=== PATIENT | male | born 1970 | race Caucasian/White ===

== ENCOUNTER 2018-04-18 07:24 | Inpatient (IN) | payer OTHER ==
[~2018-04-18] VITALS: Ht 175.3 cm; Wt 74.8 kg
[2018-04-18] MEDS ORDERED: ELVI1TAB3 PO (09:44)
[2018-04-18] MEDS ORDERED: BACL10TA PO (09:44)
[2018-04-18] MEDS ORDERED: GABA-534 PO (09:44)
[2018-04-18] MEDS ORDERED: ALBU18HF2 IH (09:44)
--- NOTE | 2018-04-18 09:50 | NUR ---
MS RN OPENING NOTES RECEIVED PATIENT IN STABLE CONDITION. IN NO APPARENT DISTRESS. BEDSIDE RAILS ARE UPX2. BED IS LOCKED AND LOWERED. CALL LIGHT IS WITHIN REACH. IV LINE IS INTACT AND PATENT. BELONGINGS WERE CHECKED. WILL CONTINUE TO MONITOR PATIENT.
[2018-04-18 10:00] VITALS: BP 145/94
--- NOTE | 2018-04-18 12:00 | NUR ---
INFORMED DR. LUNA THAT PATIENT HAS ARRIVED TO THE UNIT AND MEDICATION RECONCILIATION HAS BEEN UPDATED ON THE COMPUTER. ADVISED HER TO REVIEW MED RECON AND AWAITING ADMITTING ORDERS.
--- NOTE | 2018-04-18 13:53 | NUR ---
ASKED DR. LUNA FOR DIET ORDERS. CARDIAC DIET ORDERED PER DR. LUNA
[2018-04-18 16:00] VITALS: BP 132/80
--- NOTE | 2018-04-18 16:33 | NUR ---
ASKED DR. LUNA FOR PAIN MEDICATION FOR PATIENT. NORCO WAS ORDERED FOR PATIENT PER DR. LUNA
[2018-04-18] MEDS: HYDROCODONE/APAP 10/325MG 1 EA TABLET PO PRN (17:38)
--- NOTE | 2018-04-18 18:29 | NUR ---
MS RN CLOSING NOTES PATIENT IS IN STABLE CONDITION. IN NO APPARENT DISTRESS. BEDSIDE RAILS ARE UPX2. BED IS LOCKED AND LOWERED. CALL LIGHT IS WITHIN REACH. IV LINE IS INTACT AND PATENT. WILL ENDORSE CARE TO PER DIEM CLERK NURSE FOR MIKIE.
--- NOTE | 2018-04-18 19:30 | NUR ---
RECEIVED PATIENT IN BED ASLEEP, EASILY AROUSABLE. AO X 3, ABLE TO MAKE NEEDS KNOWN. NO ACUTE DISTRESS NOTED. DENIES ANY PAIN AT THIS TIME. IV SITE PATENT, INTACT; FLUSHED. LEFT LEG DRESSING INTACT. SAFETY REMINDERS GIVEN. ON LOW BED WITH BILATERAL UPPER SIDE RAILS UP. CALL [place] WITHIN EASY REACH. WILL CONTINUE TO MONITOR.
[2018-04-18 20:00] VITALS: BP 114/72
[2018-04-18] MEDS ORDERED: MAGNESIUM HYDROXIDE 30 ML UDC PO PRN (20:30)
[2018-04-18] MEDS ORDERED: Z GUARD REMEDY 2 OZ OINT TP PRN (20:30)
[2018-04-18] MEDS ORDERED: MAG HYDROX/AL HYDROX/SIMETH 30 ML UDC PO PRN (20:30)
[2018-04-18] MEDS ORDERED: VANCOMYCIN 500 MG in IV NS 0.9% 100 ML IV SCH (20:30)
[2018-04-18] MEDS ORDERED: HYDROCODONE/APAP 5/325MG 1 EACH TABLET PO PRN (20:30)
[2018-04-18] MEDS ORDERED: BACLOFEN (10 MG) 10 MG TABLET PO PRN (20:30)
[2018-04-18] MEDS ORDERED: ONDANSETRON HCL/PF 4 MG/2 ML VIAL IVP PRN (20:30)
[2018-04-18] MEDS ORDERED: ACETAMINOPHEN 325 MG TABLET PO PRN (20:30)
[2018-04-18] MEDS ORDERED: FEE PK DOSING 1 MIN EA MC ONE (20:49)
[2018-04-18] MEDS ORDERED: VANCOMYCIN 1 GM in IV D5W 250 ML IV ONE (21:00)
[2018-04-18 21:44] LABS: CALCIUM, SERUM 8.2 mg/dL (8.5-10.1); CREATININE 0.9 mg/dL (0.6-1.3); POTASSIUM 3.7 mmol/L (3.5-5.1)
[2018-04-19] MEDS: HYDROCODONE/APAP 10/325MG 1 EA TABLET PO PRN ×2 (00:59→19:25)
[2018-04-19] MEDS ORDERED: ALBUTEROL FS 2.5 MG/0.5 ML VIAL.NEB NEB PRN (01:30)
[2018-04-19 06:12] LABS: BASOPHILS % (AUTO) 0.8 % (0.0-2.0); EOSINOPHILS % (AUTO) 5.2 % (0.0-6.0); HEMATOCRIT 34 % (39-51); HEMOGLOBIN 11.2 g/dL (13.5-17.5); LYMPHOCYTES # (AUTO) 1.1 /CMM (0.8-4.8); LYMPHOCYTES % (AUTO) 20.5 % (20.0-44.0); MEAN CORPUSCULAR HGB CONC 33 g/dl (31.0-36.0); MEAN CORPUSCULAR VOLUME 83 fL (80-96); MONOCYTES # (AUTO) 0.4 /CMM (0.1-1.30); MONOCYTES % (AUTO) 7.4 % (2.0-12.0); NEUTROPHILS # (AUTO) 3.6 /CMM (1.8-8.9); NEUTROPHILS % (AUTO) 66.1 % (43.0-81.0); PLATELET COUNT (AUTO) 287 /CMM (150-450); RED BLOOD CELL COUNT(AUTO) 4.05 MIL/uL (4.5-6.0); WHITE BLOOD COUNT (AUTO) 5.5 K/uL (4.3-11.0)
--- NOTE | 2018-04-19 06:15 | NUR ---
PATIENT ASLEEP, EASILY AROUSABE. RESPIRATIONS EVEN. NO SIGNS OF PAIN NOTED. DUE MED GIVEN WITH NO ASE NOTED. NEEDS ATTENDED. SAFETY PRECAUTIONS AND COMFORT MEASURES IN PLACE. WILL GIVE REPORT TO DAY SHIFT FOR CONTINUITY OF CARE.
[2018-04-19 06:35] LABS: CALCIUM, SERUM 7.9 mg/dL (8.5-10.1); CREATININE 0.7 mg/dL (0.6-1.3); MAGNESIUM 1.9 mg/dL (1.8-2.4); PHOSPHORUS 3.7 mg/dL (2.5-4.9); POTASSIUM 3.8 mmol/L (3.5-5.1)
[2018-04-19 08:00] VITALS: BP 128/76
--- NOTE | 2018-04-19 08:00 | NUR ---
MS RN OPENING NOTES RECEIVED PATIENT IN STABLE CONDITION.C/O LLE WOUND. PAIN MGT GIVEN WITH NORCO 10/325 MG TAB. BEDSIDE RAILS ARE UPX2. BED IS LOCKED AND LOWERED. CALL LIGHT WITHIN REACH. IV LINE IS INTACT AND PATENT. SEEN BY AD WRITER.FOR WOUND CONSULT.WILL CONTINUE TO MONITOR PATIENT.
[2018-04-19] MEDS: VANCOMYCIN 1 GM in IV D5W 250 ML IV SCH ×3 (08:18→23:03)
--- NOTE | 2018-04-19 08:30 | NUR ---
PT TRIED TO CONTACT HIS PHARMACY FOR THE GENVOYA MEDS BUT [facility] ON WEEKENDS.
[2018-04-19] MEDS ORDERED: [UNRECOGNIZED DRUG - OTHER] PO SCH (09:00)
[2018-04-19 16:00] VITALS: BP 128/76
--- NOTE | 2018-04-19 18:35 | NUR ---
PT WAS ABLE TO CONTACT HIS PHARMACY AND WILL BE ABLE TO DELIVER HIS HIV MED GENHUBERTYA TOMORROW AM.
--- NOTE | 2018-04-19 18:37 | NUR ---
PT RESTING IN BED DENYING ANY PAIN OR DISTRESS.INTERACTING FINE WITH HIS ROOMATE.CALL LIGHT PLACED WITHIN REACH.
--- NOTE | 2018-04-19 19:25 | NUR ---
MS RN NOTE RECEIVED PT IN STABLE CONDITION. A&O X4 WITH NO SIGNS OF SOB OR DISTRESS. RIGHT AC IV PATENT AND INTACT. SAFETY MEASURES IN PLACE: BED LOW, LOCKED POSITION, UPPER SIDE RAILS UP X2, AND CALL LIGHT WITHIN REACH. WILL CONT. TO MONITOR.
--- NOTE | 2018-04-19 19:26 | NUR ---
MS RN NOTE PRN NORCO 10-325 MG GIVEN FOR PAIN 8/10 LOCATED ON R HIP AND L LEG VERBALIZED BY PT. WILL CONT. TO MONITOR.
[2018-04-19 20:00] VITALS: BP 111/62
[2018-04-19 20:19] VITALS: BP 111/62
[2018-04-20] MEDS: HYDROCODONE/APAP 10/325MG 1 EA TABLET PO PRN ×2 (04:24→12:58)
--- NOTE | 2018-04-20 04:24 | NUR ---
MS RN NOTE PRN NORCO 10-325 MG GIVEN FOR PAIN 9/10 LOCATED BILATERAL LEGS. WILL CONT. TO MONITOR.
--- NOTE | 2018-04-20 06:23 | NUR ---
MS RN NOTE PT IN STABLE CONDITION. A&O X4 WITH NO SIGNS OF SOB OR DISTRESS. LEFT HAND IV PATENT AND INTACT. SAFETY MEASURES IN PLACE: BED LOW, LOCKED POSITION, UPPER SIDE RAILS UP X2, AND CALL LIGHT WITHIN REACH. WILL CONT. TO MONITOR AND ENDORSE TO NEXT SHIFT.
[2018-04-20 06:56] LABS: BASOPHILS # (AUTO) 0.1 /CMM (0.0-0.2); EOSINOPHILS % (AUTO) 5.6 % (0.0-6.0); HEMATOCRIT 37 % (39-51); LYMPHOCYTES # (AUTO) 1.2 /CMM (0.8-4.8); LYMPHOCYTES % (AUTO) 21.2 % (20.0-44.0); MEAN CORPUSCULAR HGB CONC 33 g/dl (31.0-36.0); MEAN CORPUSCULAR VOLUME 83 fL (80-96); MONOCYTES # (AUTO) 0.5 /CMM (0.1-1.30); MONOCYTES % (AUTO) 8.5 % (2.0-12.0); NEUTROPHILS # (AUTO) 3.7 /CMM (1.8-8.9); NEUTROPHILS % (AUTO) 63.7 % (43.0-81.0); PLATELET COUNT (AUTO) 278 /CMM (150-450); RED BLOOD CELL COUNT(AUTO) 4.39 MIL/uL (4.5-6.0); WHITE BLOOD COUNT (AUTO) 5.8 K/uL (4.3-11.0)
[2018-04-20 07:23] LABS: CALCIUM, SERUM 8.4 mg/dL (8.5-10.1); CREATININE 0.7 mg/dL (0.6-1.3); MAGNESIUM 1.8 mg/dL (1.8-2.4); PHOSPHORUS 4.2 mg/dL (2.5-4.9); POTASSIUM 3.8 mmol/L (3.5-5.1)
[2018-04-20 08:00] VITALS: BP 114/68
--- NOTE | 2018-04-20 08:00 | NUR ---
RN NOTES RECEIVED PATIENT IN THE BED RESTING IN THE BED. PATIENT A/O X3/4, NO ACUTE RESPIRATORY DISTRESS. V/S TAKEN STABLE, SCHEDULED MEDICATION ADMINISTERED. PATIENT DENIED PAIN AT THIS TIME. SWOLLEN LEFT LOWER LEG, PATIENT USING URINAL. INFUSING VANCOMYCIN AT 250ML/HR INTACT. PATIENT TURN AND REPOSTION IN THE BED BY SELF. NEEDS ATTENDED AND ANTICIPATED. CONTINUED MONITORING.
[2018-04-20] MEDS: VANCOMYCIN 1 GM in IV D5W 250 ML IV SCH ×3 (08:24→23:16)
[2018-04-20] MEDS: GABAPENTIN 300 MG CAPSULE PO PRN (09:38)
--- NOTE | 2018-04-20 09:38 | NUR ---
rn notes administered Neurontin 600 mg po prn for bilateral lower legs pain 10/22 per patient request, continued monitoring.
--- NOTE | 2018-04-20 12:58 | NUR ---
RN NOTES ADMINISTERED NARCO 10/325 MG PO PRN FOR LEFT LEG PAIN 09/22 PER PATIENT REQUEST, V/S TAKEN BP-116//70, P-68, ENCOURAGED TO INCREASE FLUID INTAKE, CONTINUED MONITORING,
--- NOTE | 2018-04-20 14:08 | NUR ---
rn notes patient sleeping at this time, no acute respiratory distress, , medication were administered for pain effective, continued monitoring.
[2018-04-20 16:00] VITALS: BP 115/77
--- NOTE | 2018-04-20 18:00 | NUR ---
RN NOTES PATIENT UPSET, BECAUSE OF NOT GET DELIVERED HIS HIV MEDICATION MY HIS PHARMACY. CALL PHARMACY, WAS CLOSED TODAY. Dr LUNA AWARE OF.
--- NOTE | 2018-04-20 18:30 | NUR ---
RN NOTES PATIENT STABLE NO COMPLAINING OF PAIN AT THIS TIME. V/S STABLE, PATIENT SELF CARE, NO RESPIRATORY DISTRESS. CALL LIGHT WITHIN TO REACH. SAFETY PRECAUTION MAINTAINED ALL THE TIME. ENDORSED ONCOMING NURSE FOR PLAN OF CARE.
--- NOTE | 2018-04-20 19:35 | NUR ---
MS RN OPENING NOTES: RECEIVED PT ON ROOM AIR AND IS TOLERATING WELL. PT ASLEEP AT THIS TIME. NO SOB NOTED. NO S/S OF DISTRESS. PT HAS IV AND IS PATENT AND INTACT. CURRENTLY H/L. BED KEPT IN LOW, LOCKED POSITION, AND SIDE RAILS X 2UP. WILL CONTINUE TO MONITOR PT.
[2018-04-20 20:00] VITALS: BP 123/68
--- NOTE | 2018-04-20 20:55 | NUR ---
MS RN NOTES: SPOKE WITH DR. ALMEIDA. INFORMED HIM THAT PT IS VERY ANGRY ABOUT NOT GETTING HIS MEDICATION GENVOYA FOR 2 DAYS NOW. FRIEND IS AT BEDSIDE WHO IS WILLING TO COPY PREPARER MEDICATIONS AT [facility] 24 HOURS AT [facility]. PER DR. ALMEIDA, HE WILL NOT WRITE A PRESCRIPTION FOR GENVOYA. IT WILL BE TAKEN CARE OF IN THE MORNING.
--- NOTE | 2018-04-20 21:14 | NUR ---
MS RN NOTES: PT INFORMED ABOUT THE SITUATION OF GENVOYA MEDICATION. PT VERY UPSET AND ANGRY.
[2018-04-20] MEDS: HYDROCODONE/APAP 5/325MG 1 EACH TABLET PO PRN (21:17)
--- NOTE | 2018-04-20 21:18 | NUR ---
MS RN NOTES: PT COMPLAINING OF R HIP AND BILATERAL LEG PAIN 10/22. PT WAS ADMINISTERED NORCO 5 PO. WILL CONTINUE TO MONITOR PT.
[2018-04-21] MEDS: HYDROCODONE/APAP 5/325MG 1 EACH TABLET PO PRN (03:15)
--- NOTE | 2018-04-21 03:17 | NUR ---
MS RN NOTES: PT COMPLAINING OF BILATERAL CALF PAIN AND R HIP PAIN. PT WAS ADMINISTERED NORCO 5 PO. WILL CONTINUE TO MONITOR.
[2018-04-21 07:12] LABS: BASOPHILS % (AUTO) 0.8 % (0.0-2.0); EOSINOPHILS % (AUTO) 5.3 % (0.0-6.0); HEMATOCRIT 37 % (39-51); LYMPHOCYTES # (AUTO) 1.6 /CMM (0.8-4.8); LYMPHOCYTES % (AUTO) 27.3 % (20.0-44.0); MEAN CORPUSCULAR HGB CONC 33 g/dl (31.0-36.0); MEAN CORPUSCULAR VOLUME 84 fL (80-96); MONOCYTES # (AUTO) 0.6 /CMM (0.1-1.30); MONOCYTES % (AUTO) 10.1 % (2.0-12.0); NEUTROPHILS # (AUTO) 3.3 /CMM (1.8-8.9); NEUTROPHILS % (AUTO) 56.5 % (43.0-81.0); PLATELET COUNT (AUTO) 312 /CMM (150-450); RED BLOOD CELL COUNT(AUTO) 4.39 MIL/uL (4.5-6.0); WHITE BLOOD COUNT (AUTO) 5.9 K/uL (4.3-11.0)
--- NOTE | 2018-04-21 07:24 | NUR ---
MS RN CLOSING NOTES: ALL NEEDS WERE ATTENDED AND ANTICIPATED FOR. PT ASLEEP AT THIS TIME AND RESTING COMFORTABLY. IV REMAINS INTACT. CURRENTLY H/L. BED KEPT IN LOW, LOCKED POSITION, AND SIDE RAILS X 2UP. ENDORSED TO AM NURSE FOR MIKIE.
[2018-04-21 07:28] LABS: CALCIUM, SERUM 8.3 mg/dL (8.5-10.1); CREATININE 0.7 mg/dL (0.6-1.3); MAGNESIUM 1.9 mg/dL (1.8-2.4); PHOSPHORUS 3.7 mg/dL (2.5-4.9); POTASSIUM 3.9 mmol/L (3.5-5.1)
--- NOTE | 2018-04-21 07:35 | NUR ---
MS RN OPENING NOTE RECEIVED PATIENT ASLEEP IN BED AT THIS TIME. NO FACIAL GRIMACING NOTED FOR PAIN. NO SOB OR DISTRESS NOTED ON ROOM AIR TOLERATING WELL. CALL LIGHT WITHIN REACH. SAFETY MEASURES IMPLEMENTED. LEFT HAND IV INTACT AND PATENT NO REDNESS OR SWELLING NOTED WITH NO IV FLUIDS RUNNING AT THIS TIME. LABS THIS MORNING, RESULTS PENDING. BED LOCKED IN LOWEST POSITION WITH SIDERAILS UP x2 FOR SAFETY. WILL CONTINUE TO MONITOR THROUGHOUT SHIFT
[2018-04-21 08:00] VITALS: BP 124/72
[2018-04-21] MEDS: HYDROCODONE/APAP 10/325MG 1 EA TABLET PO PRN ×3 (08:25→23:51)
[2018-04-21] MEDS: VANCOMYCIN 1 GM in IV D5W 250 ML IV SCH ×2 (08:29→16:00)
--- NOTE | 2018-04-21 08:34 | NUR ---
MS RN NOTE PATIENT REQUESTING PAIN MEDICATION. OFFERED TO REPOSITION AND OFFER NEEDS TO MAKE COMFORTABLE. PATIENT STILL NOTED WITH FACIAL GRIMACING. LEFT LEG PAIN 10/10 ACHING &THROBBING. NORCO 10/325 MG PO PRN GIVEN. WILL REASSESS FOR EFFECTIVENESS
--- NOTE | 2018-04-21 08:38 | NUR ---
MS RN NOTE PATIENT REQUESTING ASSOCIATE CHEMIST. JOHNNA LUCIO
--- NOTE | 2018-04-21 09:30 | NUR ---
RN NOTE PATIENT WAS BECOMING VERY AGITATED AND ANGRY IN REGARD TO HIV MEDICATIONS. PATIENT STATED " I NEED MY MEDICATIONS. YOU GUYS NEED TO HAVE YOUR PHARMACY CALL MY PHARMACY TO GET MY MEDICATIONS SO I CAN TAKE THEM" WHEN SPEAKING TO PATIENT AND INFORMING HIM THAT THOSE MEDICATIONS ARE NOT AVAILABLE HERE IN OUR PHARMACY AND NEEDED TO BE BROUGHT IN FROM HOME PATIENT BEGAN YELLING " THIS IS BULLSHIT YOU GUYS DONT WANT TO GIVE ME MY MEDICATION. YOU KNOW WHAT ? WHY AM I HERE? YOU GUYS AREN'T TREATING ME AND I NEED MY MEDICATIONS. IM GOING TO [facility], THE DOCTOR AND THIS HOSPITAL. IM LEAVING THIS IS BULLSHIT". INFORMED -DR LUNA
--- NOTE | 2018-04-21 11:22 | NUR ---
INTERMEDIATE ACCOUNTANT NOTE PATIENT WAS VERY ANGRY AND WANTED TO LEAVE AMA. INFORMED MD THAT PATIENT WAS UPSET IN REGARDS TO HIV MEDICATIONS NOT BEING ABLE TO BE GIVEN DURING HOSPITAL STAY. INFORMED PATIENT THAT SOMEONE NEEDED TO BRING MEDICATION IN FOR HIM AND WAS STILL YELLING AND SCREAMING STATING " THIS IS BULLSHIT IM GOING TO [facility] YOU ALL THE DOCTORS AND THIS HOSPITAL IM CALLING MY LOG HOOKER RIGHT NOW". PATIENT HAD ALL BELONGINGS WITH HIM AT BEDSIDE. REFUSED WOUND PICTURE DOCUMENTATION. IV REMOVED. ALERT AND ORIENTED X4. NO FACIAL GRIMACING NOTED FOR PAIN. NO SOB OR DISTRESS NOTED ON ROOM AIR TOLERATING WELL. ALL NURSING CARE NEEDS ATTENDED TO NEEDED. ALL MEDICATIONS GIVEN ORDERED. CALL LIGHT WITHIN REACH AT ALL TIMES. SAFETY MEASURES IMPLEMENTED. REFUSED DISCHARGE PAPERWORK AT THIS TIME. LEFT VIA TAXI. Addendum: 04/21/18 at 1158 by SUHAS CARRASQUILLO RN incident report made Unique Id: [id number] informed dr zamora, supervisor drying and winding and charge nurse
--- NOTE | 2018-04-21 16:00 | NUR ---
PATIENT LEFT AMA. VANCOMYCIN NOT ADMINISTERED.
--- NOTE | 2018-04-21 18:00 | NUR ---
MS RN OPENING NOTES RECEIVED PATIENT IN STABLE CONDITION. IN NO APPARENT DISTRESS. BEDSIDE RAILS ARE UPX2. BED IS LOCKED AND LOWERED. CALL LIGHT IS WITHIN REACH. WILL CONTINUE TO MONITOR PATIENT
--- NOTE | 2018-04-21 18:54 | NUR ---
MS RN CLOSING NOTES PATIENT IS IN STABLE CONDITION. IN NO APPARENT DISTRESS. BEDSIDE RAILS ARE UPX2. BED IS LOCKED AND LOWERED. CALL LIGHT IS WITHIN REACH. IV LINE IS INTACT AND PATENT. WILL ENDORSE CARE TO M1A1 TANK CREWMAN NURSE FOR MIKIE.
--- NOTE | 2018-04-21 19:30 | NUR ---
MS/RN NOTES RECEIVED PATIENT IN BED, ALERT, ORIENTED HAVING DINNER, AND ABLE TO VERBALIZE NEEDS, INFORMED HIV MEDICATION AND PROVIDED IT FOR PHARMACY HOME MEDICATION FOR HIS HIV, PATIENT REPORTED THAT HE TOOK HIS MED HIV TODAY. TO SEND HIS HOME MED TO PHARMACY. INFORM CHARGE NURSE.
[2018-04-21 20:00] VITALS: BP 116/62
--- NOTE | 2018-04-21 20:00 | NUR ---
ms/rn notes received patietn , alert,oriented,pain medication norco 5-325 mg po to be given for severe pain, ate some snacks and provided fluids, ambulatory with walker.call lights within reach, bed locked will monitor.
--- NOTE | 2018-04-21 23:52 | NUR ---
MS/RN NOTES PATIETNAWAKEN FROM SLEEP, BRP AND AMBULATED AND REQUESTED FOR PAIN MEDICATION SEVERE PAIN ON LEFT LEG, 12/23, NORCO 10-325 MG PO ADMINISTER BY MOUTH, ABLE TO SWALLOW AND WILL MONITOR PAIN RELIEF.
[2018-04-22] MEDS ORDERED: VANCOMYCIN 1 GM VIAL ONE (00:07)
[2018-04-22] MEDS: VANCOMYCIN 1 GM in IV D5W 250 ML IV SCH ×4 (00:13→23:29)
[2018-04-22] MEDS: ZOLPIDEM TARTRATE 5 MG TABLET PO PRN (03:02)
--- NOTE | 2018-04-22 03:04 | NUR ---
MS/RN NOTES PATIENT REPORTED AND VERBALIZED UNABLE TO SLEEP AND WAS AWAKEN BY THE OTHER PATIENT IN THE ROOM, REQUESTING TO HAVE MEDICATION FOR SLEEP INFORMED AFTER 3AM AND PROTOCOL BUT PATIENT VERBALIZE THE NEED . INFORMED PATIENT PROS AND CONS AND VERBALIZED UNDERSTANDING WILL MONITOR. AMBIEN GIVEN FOR SLEEP. CALL LIGHTS WITHIN REACH, BED LOCKED,
--- NOTE | 2018-04-22 07:33 | NUR ---
321-1 MS/RN NOTES PATIENT ABLE TO SLEEP AFTER SLEEP MEDICATION GIVEN, ALERT, ORIENTED X3, ABLE TO VERBALIZE NEES, PAIN MEDICATION GIVEN AND MONIOTRED FOR PAIN RELIEF, ON IV ANTIBIOTIC VANCOMYCIN M MONIOTRED FOR ANY S/S OF ADVERSE REACTION, CALL LIGHTS WITHIN REACH, BED LOCKED, PROVIDED FLUIDS, ATTENDED ALL NEEDS. WILL ENDORSE TO AM RN FOR MIKIE.
[2018-04-22 08:00] VITALS: BP 116/69
--- NOTE | 2018-04-22 08:00 | NUR ---
MS RN NOTES PATIENT IN BED RESTING NO SOB OR ACUTE DISTRESS NOTED. PATIENT ALERT, ORIENTED X3 DENIES ANY PAIN OR DISCOMFORT. BED IN LOW LOCKED POSITION. CALL LIGHT WITHIN REACH. WILL CONTINUE TO MONITOR.
[2018-04-22] MEDS: [UNRECOGNIZED DRUG - OTHER] PO SCH (09:16)
[2018-04-22] MEDS: HYDROCODONE/APAP 10/325MG 1 EA TABLET PO PRN (14:39)
[2018-04-22 16:00] VITALS: BP 137/68
--- NOTE | 2018-04-22 17:00 | NUR ---
MS RN NOTES TRANSFERRED CARE TO GAYATRI RN BEDSIDE REPORT GIVEN. PATIENT ALERT, ORIENTED X3 DENIES ANY PAIN OR DISCOMFORT. ALL DUE MEDICATIONS ADMINISTERED. ALL NEEDS MET.
--- NOTE | 2018-04-22 17:05 | NUR ---
RECEIVED REPORT FROM NIA KHALIL. FOR MIKIE. PATIENT IS IN BED, IN STABLE CONDITION. IN NO APPARENT DISTRESS AT THIS TIME. WILL CONTINUE TO MONITOR.
--- NOTE | 2018-04-22 18:56 | NUR ---
MS RN NOTES PATIENT IN BED RESTING NO SOB OR ACUTE DISTRESS NOTED. PATIENT ALERT, ORIENTED X3. ALL DUE MEDICATIONS ADMINISTERED. ALL NEEDS MET. PERIPHERAL IV INTACT PATENT. WILL ENDORSE TO PM SHIFT MIKIE.
--- NOTE | 2018-04-22 19:43 | NUR ---
MS RN OPENING NOTES: RECEIVED PT ON ROOM AIR AND IS TOLERATING WELL. FRIEND AT BEDSIDE AT THIS TIME. NO SOB NOTED. NO S/S OF DISTRESS. IV INTACT. GARBLED SPEECH NOTED. BED KEPT IN LOW, LOCKED POSITION, AND SIDE RAILS X 2UP. WILL CONTINUE TO MONITOR PT.
[2018-04-22 20:00] VITALS: BP 109/66
[2018-04-22] MEDS: HYDROCODONE/APAP 5/325MG 1 EACH TABLET PO PRN (21:04)
--- NOTE | 2018-04-22 21:06 | NUR ---
MS RN NOTES: PT COMPLAINING OF 6/10 L LOWER EXTREMITY PAIN. PT WAS ADMINISTERED NORCO 5 PO. WILL CONTINUE TO MONITOR.
[2018-04-23 07:29] LABS: BASOPHILS # (AUTO) 0.1 /CMM (0.0-0.2); BASOPHILS % (AUTO) 0.9 % (0.0-2.0); EOSINOPHILS % (AUTO) 5.2 % (0.0-6.0); HEMATOCRIT 39 % (39-51); HEMOGLOBIN 12.8 g/dL (13.5-17.5); LYMPHOCYTES # (AUTO) 1.6 /CMM (0.8-4.8); MEAN CORPUSCULAR HGB CONC 33 g/dl (31.0-36.0); MEAN CORPUSCULAR VOLUME 84 fL (80-96); MONOCYTES # (AUTO) 0.6 /CMM (0.1-1.30); MONOCYTES % (AUTO) 10.8 % (2.0-12.0); NEUTROPHILS # (AUTO) 3.1 /CMM (1.8-8.9); NEUTROPHILS % (AUTO) 55.1 % (43.0-81.0); PLATELET COUNT (AUTO) 296 /CMM (150-450); RED BLOOD CELL COUNT(AUTO) 4.71 MIL/uL (4.5-6.0); WHITE BLOOD COUNT (AUTO) 5.5 K/uL (4.3-11.0)
[2018-04-23 07:54] LABS: CALCIUM, SERUM 8.6 mg/dL (8.5-10.1); CREATININE 0.8 mg/dL (0.6-1.3); PHOSPHORUS 4.3 mg/dL (2.5-4.9); POTASSIUM 4.3 mmol/L (3.5-5.1)
[2018-04-23 08:00] VITALS: BP 107/62
[2018-04-23] MEDS: VANCOMYCIN 1 GM in IV D5W 250 ML IV SCH ×2 (09:12→16:24)
[2018-04-23] MEDS: [UNRECOGNIZED DRUG - OTHER] PO SCH (09:12)
[2018-04-23] MEDS: HYDROCODONE/APAP 5/325MG 1 EACH TABLET PO PRN ×2 (09:45→16:25)
[2018-04-23 16:00] VITALS: BP 131/72
[2018-04-23 20:00] VITALS: BP 123/68
[2018-04-23] MEDS: GABAPENTIN 300 MG CAPSULE PO PRN (20:27)
--- NOTE | 2018-04-23 20:30 | NUR ---
MS RICHARD NOTES PT SEEN IN BED AWAKE AND ALERT STILL EATING SANDWICH AT THIS TIME,. COMPLAINING OF RESTLESS LEGS. NEURONTIN PO GIVEN ORDERED. NO SIGNS OF ANY ACUTE DISTRESS NOTED. LEFT LOWER LEGS SWOLLEN ENCOURAGE HIM TO UP ON PILLOWS . VITAL SIGNS WITHIN NORMAL LIMIT. KEPT HIM COMFORTABLE AT ALL TIMES.WILL CONTINUE MONITORING. PLACE CALL LIGHT AT REACH.
--- NOTE | 2018-04-24 | NUR ---
MS RICHARD NOTES PT BACK TO SLEEP AFTER ASKING FOR SOME FOOD TO EAT. NO SIGNS OF ANY DISCOMFORT NOTED AT THIS TIMES. VANCOMYCIN IVP BAG WILL BE HANG BY ANOTHER NURSE ORDERED. NO VANCO TROUGH DUE AT THIS TIME. WILL CONTINUE MONITORING.
[2018-04-24] MEDS: VANCOMYCIN 1 GM in IV D5W 250 ML IV SCH ×2 (00:10→09:52)
--- NOTE | 2018-04-24 07:41 | NUR ---
MS SIGN BUILDER CLOSING NOTES PT WATCHING TV AT THIS TIME , DENIES ANY PAIN OR ANY DISCOMFORT. SLEPT WELL AND STABLE LORRAINE THE NIGHT. MY ONLY NOTICED EVERY TIME HE WOKE UP ASKING FOR FOODS. ABLE TO AMBULATE WITH WALKER. ALL DUE MEDS GIVEN AND ALL NEEDS MET. KEPT HIM WARM AND COMFORTABLE AT ALL TIMES. PLACE CALL LIGHT AT REACH. ENDORSE TO AM NURSE FOR CONTINUITY OF CARE.
[2018-04-24 07:45] LABS: BASOPHILS # (AUTO) 0.1 /CMM (0.0-0.2); BASOPHILS % (AUTO) 0.8 % (0.0-2.0); EOSINOPHILS % (AUTO) 4.2 % (0.0-6.0); HEMATOCRIT 38 % (39-51); HEMOGLOBIN 12.2 g/dL (13.5-17.5); LYMPHOCYTES # (AUTO) 1.8 /CMM (0.8-4.8); LYMPHOCYTES % (AUTO) 27.3 % (20.0-44.0); MEAN CORPUSCULAR HGB CONC 33 g/dl (31.0-36.0); MEAN CORPUSCULAR VOLUME 84 fL (80-96); MONOCYTES # (AUTO) 0.6 /CMM (0.1-1.30); MONOCYTES % (AUTO) 9.7 % (2.0-12.0); NEUTROPHILS # (AUTO) 3.9 /CMM (1.8-8.9); PLATELET COUNT (AUTO) 293 /CMM (150-450); WHITE BLOOD COUNT (AUTO) 6.7 K/uL (4.3-11.0)
[2018-04-24 08:00] VITALS: BP 119/69
[2018-04-24 08:09] LABS: CALCIUM, SERUM 8.6 mg/dL (8.5-10.1); CREATININE 0.8 mg/dL (0.6-1.3); MAGNESIUM 2.1 mg/dL (1.8-2.4); PHOSPHORUS 3.9 mg/dL (2.5-4.9); POTASSIUM 4.1 mmol/L (3.5-5.1)
--- NOTE | 2018-04-24 08:10 | NUR ---
MS RN RECEIVED ON BED, AWAKE,ALERT,ORIENTED X4,NOT IN ANY FORM OF DISTRESS, RESPIRATIONS EVEN AND UNLABORED,NO SOB NOTED,EATING BREAKFAST AT THIS TIME, ALL NEEDS ATTENDED.
--- NOTE | 2018-04-24 09:10 | NUR ---
ms rn due meds given.tolerated well.
[2018-04-24] MEDS: [UNRECOGNIZED DRUG - OTHER] PO SCH (09:52)
[2018-04-24] MEDS: HYDROCODONE/APAP 10/325MG 1 EA TABLET PO PRN (12:34)
[2018-04-24] MEDS: GABAPENTIN 300 MG CAPSULE PO PRN ×2 (12:34→21:04)
--- NOTE | 2018-04-24 15:30 | NUR ---
ms rn new hep loch inserted by student at left hand g22 w/ good venous return.
[2018-04-24 15:59] VITALS: BP 125/69
[2018-04-24] MEDS: VANCOMYCIN 0.75 GM in IV D5W 250 ML IV SCH (16:58)
--- NOTE | 2018-04-24 17:39 | NUR ---
ms rn on bed, no distress noted,all needs attended.
[2018-04-24 19:46] VITALS: BP 116/72
--- NOTE | 2018-04-24 20:00 | NUR ---
MS RICHARD INITIAL NOTES PT SEEN IN BED LYING DOWN WHILE WATCHING TV. MIKE AT THIS TIME. HE ASKED FOR ANOTHER MEATLOAF AND INSISTING THAT HE ORDERED ANOTHER DINNER TRAY. SPOKE TO HIM AND OFFERED SOMETHING ELSE AND PT STATED GIVE ME SANDWICH INSTEAD. HE STILL REFUSING TO TOUCH HIS LEFT LOWER LEG AND APPLIED DRESSING. DENIES ANY PAIN OR ANY DISCOMFORT. BUT HE STATED HE WANTS HIS NEURONTIN FOR HIS RESTLESS LEG. KEPT HIM COMFORTABLE AT ALL TIMES. WILL CONTINUE MONITORING.
--- NOTE | 2018-04-24 21:05 | NUR ---
MS RICHARD NOTES SNACKS ALSO SERVED PT REQUESTED AND NEURONTIN GIVEN ORDERED. WILL CONTINUE MONITORING.
[2018-04-25] MEDS: VANCOMYCIN 0.75 GM in IV D5W 250 ML IV SCH ×3 (00:36→16:40)
--- NOTE | 2018-04-25 00:36 | NUR ---
MS RICHARD NOTES VANCOMYCIN IVP BAG HUNG BY ANOTHER NURSE ORDERED. NO VANCO TROUGH DUE AT THIS TIME. KEPT HIM WARM AND COMFORTABLE AT ALL TIMES. WILL CONTINUE MONITORING.
--- NOTE | 2018-04-25 07:28 | NUR ---
MS PRODUCT HANDLER CLOSING NOTES PT REMAINS SLEEPING COMFORTABLY IN BED WITHOUT ANY ACUTE DISTRESS NOTED. STABLE LORRAINE THE NIGHT AND SLEPT WELL. KEPT HIM WARM AND COMFORTABLE AT ALL TIMES. HE ONLY REQUESTED IS DOUBLE PORTION OF FOODS. ENDORSE TO AM NURSE FOR CONTINUITY OF CARE. PLACE CALL LIGHT AT REACH.
[2018-04-25 07:48] LABS: BASOPHILS # (AUTO) 0.1 /CMM (0.0-0.2); EOSINOPHILS % (AUTO) 4.4 % (0.0-6.0); HEMATOCRIT 39 % (39-51); HEMOGLOBIN 12.7 g/dL (13.5-17.5); LYMPHOCYTES # (AUTO) 1.7 /CMM (0.8-4.8); LYMPHOCYTES % (AUTO) 27.9 % (20.0-44.0); MEAN CORPUSCULAR HGB CONC 33 g/dl (31.0-36.0); MEAN CORPUSCULAR VOLUME 84 fL (80-96); MONOCYTES # (AUTO) 0.6 /CMM (0.1-1.30); MONOCYTES % (AUTO) 9.1 % (2.0-12.0); NEUTROPHILS # (AUTO) 3.6 /CMM (1.8-8.9); NEUTROPHILS % (AUTO) 57.6 % (43.0-81.0); PLATELET COUNT (AUTO) 290 /CMM (150-450); RED BLOOD CELL COUNT(AUTO) 4.61 MIL/uL (4.5-6.0); WHITE BLOOD COUNT (AUTO) 6.2 K/uL (4.3-11.0)
[2018-04-25 07:50] LABS: CALCIUM, SERUM 8.4 mg/dL (8.5-10.1); CREATININE 0.7 mg/dL (0.6-1.3); POTASSIUM 4.2 mmol/L (3.5-5.1)
[2018-04-25 08:00] VITALS: BP 113/63
--- NOTE | 2018-04-25 08:05 | NUR ---
MS RN RECEIVED ON BED, AWAKE,ALERT,ORIENTED X4,NOT IN ANY FORM OF DISTRESS, RESPIRATIONS EVEN AND UNLABORED,NO SOB NOTED, LUNGS ARE CLEAR,ABDOMEN SOFT,POSITIVE BOWEL SOUNDS,DENIES PAIN AT THIS TIME,ALL NEEDS ATTENDED.
--- NOTE | 2018-04-25 08:50 | NUR ---
MS KHALIL BREAKFAST SERVED,DUE MEDS GIVEN,TOLERATED WELL.
[2018-04-25] MEDS: [UNRECOGNIZED DRUG - OTHER] PO SCH (09:24)
--- NOTE | 2018-04-25 12:20 | NUR ---
MS RN WAS SEEN BY SCOOBY HINOJOSA FOR ORTHO CONSULT,NO ORDERS MADE.
[2018-04-25 16:00] VITALS: BP 108/70
--- NOTE | 2018-04-25 17:13 | NUR ---
MS RN ON BED, NO DISTRESS NOTED,ALL NEEDS ATTENDED.
--- NOTE | 2018-04-25 19:50 | NUR ---
MS RN NOTE: PATIENT RESTING IN BED, NO ACUTE DISTRESS NOTED. BREATHING EVEN AND UNLABORED, NO SOB NOTED. BED LOCKED AND IN LOWEST POSITION, CALL LIGHT IN REACH. WILL CONTINUE TO MONITOR.
[2018-04-25 20:00] VITALS: BP 117/73
[2018-04-25] MEDS: GABAPENTIN 300 MG CAPSULE PO PRN (21:17)
--- NOTE | 2018-04-25 21:45 | NUR ---
MS RN NOTE: PATIENT COMPLAINS OF PAIN TO LEFT LEG, NEURONTIN 600MG ORAL PER MD ORDER. WILL CONTINUE TO MONITOR.
[2018-04-26] MEDS: VANCOMYCIN 0.75 GM in IV D5W 250 ML IV SCH ×4 (00:32→23:52)
--- NOTE | 2018-04-26 06:20 | NUR ---
MS RN NOTE: PATIENT RESTING IN BED, NO ACUTE DISTRESS NOTED. BREATHING EVEN AND UNLABORED, NO SOB NOTED. BED LOCKED AND IN LOWEST POSITION, CALL LIGHT IN REACH. WILL ENDORSE TO DAY NURSE TO CONTINUE WITH PLAN OF CARE.
--- NOTE | 2018-04-26 07:05 | NUR ---
RN NOTES PATIENT ASLEEP BUT EASILY AWAKEN, NAD, BREATHING EVEN AND UNLABORED, KEPT COMFORTABLE, NEEDS ATTENDED, CALL LIGHT WITHIN REACH, WILL CONTINUE TO MONITOR.
[2018-04-26 07:24] LABS: CALCIUM, SERUM 7.4 mg/dL (8.5-10.1); CREATININE 0.8 mg/dL (0.6-1.3); POTASSIUM 4.1 mmol/L (3.5-5.1)
[2018-04-26 07:32] LABS: BASOPHILS # (AUTO) 0.1 /CMM (0.0-0.2); BASOPHILS % (AUTO) 1.1 % (0.0-2.0); EOSINOPHILS % (AUTO) 3.8 % (0.0-6.0); HEMATOCRIT 38 % (39-51); HEMOGLOBIN 12.5 g/dL (13.5-17.5); LYMPHOCYTES # (AUTO) 1.8 /CMM (0.8-4.8); LYMPHOCYTES % (AUTO) 26.9 % (20.0-44.0); MEAN CORPUSCULAR HGB CONC 33 g/dl (31.0-36.0); MEAN CORPUSCULAR VOLUME 84 fL (80-96); MONOCYTES # (AUTO) 0.6 /CMM (0.1-1.30); MONOCYTES % (AUTO) 8.4 % (2.0-12.0); NEUTROPHILS # (AUTO) 4.1 /CMM (1.8-8.9); NEUTROPHILS % (AUTO) 59.8 % (43.0-81.0); PLATELET COUNT (AUTO) 304 /CMM (150-450); RED BLOOD CELL COUNT(AUTO) 4.51 MIL/uL (4.5-6.0); WHITE BLOOD COUNT (AUTO) 6.8 K/uL (4.3-11.0)
[2018-04-26 08:00] VITALS: BP 123/70
[2018-04-26] MEDS: [UNRECOGNIZED DRUG - OTHER] PO SCH (08:25)
[2018-04-26 16:00] VITALS: BP 128/69
[2018-04-26] MEDS: HYDROCODONE/APAP 10/325MG 1 EA TABLET PO PRN (16:41)
--- NOTE | 2018-04-26 18:19 | NUR ---
RN NOTES PATIENT A/OX4, BREATHING EVEN AND UNLABORED, NO DISTRESS NOTED, LLE STILL NOTED WITH SWELLING. DENIES PAIN AT THIS TIME, ABLE TO WALK TO RESTROOM WITH WALKER. NEEDS ATTENDED AND MET, CALL LIGHT WITHIN REACH, WILL ENDORSE TO SHIPFITTER FOR MIKIE.
[2018-04-26 20:00] VITALS: BP 121/75
--- NOTE | 2018-04-27 07:32 | NUR ---
RN NOTES PATIENT A/OX4, BREATHING EVEN AND UNLABORED, NO SOB NOTED, DENIES PAIN, IV SITE PATENT AND INTACT, KEPT ON SALINE LOCK, KEPT PATIENT COMFORTABLE, NEEDS ATTENDED, CALL LIGHT WITHIN REACH, WILL CONTINUE TO MONITOR.
[2018-04-27 07:37] LABS: BASOPHILS # (AUTO) 0.1 /CMM (0.0-0.2); EOSINOPHILS % (AUTO) 3.6 % (0.0-6.0); HEMATOCRIT 38 % (39-51); HEMOGLOBIN 12.6 g/dL (13.5-17.5); LYMPHOCYTES # (AUTO) 1.7 /CMM (0.8-4.8); LYMPHOCYTES % (AUTO) 24.8 % (20.0-44.0); MEAN CORPUSCULAR HGB CONC 33 g/dl (31.0-36.0); MEAN CORPUSCULAR VOLUME 84 fL (80-96); MONOCYTES # (AUTO) 0.6 /CMM (0.1-1.30); MONOCYTES % (AUTO) 8.8 % (2.0-12.0); NEUTROPHILS # (AUTO) 4.2 /CMM (1.8-8.9); NEUTROPHILS % (AUTO) 61.8 % (43.0-81.0); PLATELET COUNT (AUTO) 308 /CMM (150-450); RED BLOOD CELL COUNT(AUTO) 4.57 MIL/uL (4.5-6.0); WHITE BLOOD COUNT (AUTO) 6.8 K/uL (4.3-11.0)
[2018-04-27 07:55] LABS: CALCIUM, SERUM 8.3 mg/dL (8.5-10.1); CREATININE 0.8 mg/dL (0.6-1.3); PHOSPHORUS 4.3 mg/dL (2.5-4.9); POTASSIUM 4.2 mmol/L (3.5-5.1)
[2018-04-27 08:00] VITALS: BP 114/69
[2018-04-27] MEDS: GABAPENTIN 300 MG CAPSULE PO PRN (08:45)
[2018-04-27] MEDS: [UNRECOGNIZED DRUG - OTHER] PO SCH (08:45)
[2018-04-27] MEDS: VANCOMYCIN 0.75 GM in IV D5W 250 ML IV SCH ×3 (08:45→23:37)
[2018-04-27 16:00] VITALS: BP 93/48
--- NOTE | 2018-04-27 18:38 | NUR ---
RN NOTES PATIENT IN NO DISTRESS, BREATHING EVEN AND UNLABORED, NO SOB NOTED, NO SIGNIFICANT CHANGE THIS SHIFT, NEEDS ATTENDED, CALL LIGHT WITHIN REACH, WILL ENDORSE TO RUBBER TIRE AND TUBES SUPERVISOR FOR MIKIE.
[2018-04-27 20:00] VITALS: BP 114/71
--- NOTE | 2018-04-27 20:00 | NUR ---
MS RN NOTES RECEIVED PATIENT IN BED AND WATCHING TV WITH NO DISTRESS NOTED. CALL LIGHT WITHIN REACH. NO C/O PAIN OR DISCOMFORT. PERIPHERAL LINE INTACT AND PATENT. BED IN LOW LOCK SETTING. ALL BELONGINGS KEPT NEAR PATIENT. WILL CONTINUE TO MONITOR.
[2018-04-27] MEDS: ZOLPIDEM TARTRATE 5 MG TABLET PO PRN (23:48)
--- NOTE | 2018-04-28 06:03 | NUR ---
MS RN CLOSING NOTES PATIENT ASLEEP IN BED WITH NO DISTRESS NOTED. CALL LIGHT WITHIN REACH. LEFT HAND #22 GAUGE IV REMOVED D/T SWELLING AND TENDERNESS. NEW PERIPHERAL LINE IN LFA #22 GAUGE INTACT AND PATENT. ALL DUE MEDS GIVEN ORDERED WITH NO ASE NOTED. NO C/O PAIN OR DISCOMFORT NOTED DURING SHIFT. BED IN LOW LOCK SETTING. ALL BELONGINGS WITHIN REACH. WALKER AT BEDSIDE. WILL ENDORSE TO ONCOMING SHIFT.
--- NOTE | 2018-04-28 07:30 | NUR ---
RN MS NOTES PT IN BED, ASLEEP, EASY TO AROUSE, ALERT AND ORIENTED, NO COMPLAINT OF PAIN AT THIS TIME, RESPIRATIONS NORMAL, CALL LIGHT WITHIN REACH, NEEDS ATTENDED.
[2018-04-28 07:37] LABS: BASOPHILS # (AUTO) 0.1 /CMM (0.0-0.2); HEMATOCRIT 39 % (39-51); HEMOGLOBIN 12.7 g/dL (13.5-17.5); LYMPHOCYTES # (AUTO) 1.7 /CMM (0.8-4.8); LYMPHOCYTES % (AUTO) 21.4 % (20.0-44.0); MEAN CORPUSCULAR HGB CONC 32 g/dl (31.0-36.0); MEAN CORPUSCULAR VOLUME 84 fL (80-96); MONOCYTES # (AUTO) 0.8 /CMM (0.1-1.30); MONOCYTES % (AUTO) 9.6 % (2.0-12.0); NEUTROPHILS # (AUTO) 5.1 /CMM (1.8-8.9); PLATELET COUNT (AUTO) 321 /CMM (150-450); RED BLOOD CELL COUNT(AUTO) 4.65 MIL/uL (4.5-6.0); WHITE BLOOD COUNT (AUTO) 7.9 K/uL (4.3-11.0)
[2018-04-28 07:56] LABS: CALCIUM, SERUM 8.5 mg/dL (8.5-10.1); CREATININE 0.8 mg/dL (0.6-1.3); POTASSIUM 4.2 mmol/L (3.5-5.1)
[2018-04-28 08:00] VITALS: BP 126/74
[2018-04-28] MEDS: [UNRECOGNIZED DRUG - OTHER] PO SCH (08:17)
[2018-04-28] MEDS: VANCOMYCIN 0.75 GM in IV D5W 250 ML IV SCH (08:17)
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
== END 2018-04-28 12:15 | disposition home or self-care (01) | DRG 813 ==
LOC: MED 09:23 → UNDODISIN 04-21 10:45 → MED 04-21 18:14
PROVIDERS: ADMIT Internal Medicine; ATTEND Internal Medicine
DX: T81.89XA Other complications of procedures, not elsewhere classified, initial encounter (principal); M00.9 Pyogenic arthritis, unspecified; M97.12XA Periprosthetic fracture around internal prosthetic left knee joint, initial encounter; L02.416 Cutaneous abscess of left lower limb; M86.662 Other chronic osteomyelitis, left tibia and fibula; F12.90 Cannabis use, unspecified, uncomplicated; L03.119 Cellulitis of unspecified part of limb; S82.142A Displaced bicondylar fracture of left tibia, initial encounter for closed fracture; M65.9 Synovitis and tenosynovitis, unspecified; Y83.9 Surgical procedure, unspecified as the cause of abnormal reaction of the patient, or of later complication, without mention of misadventure at the time of the procedure; Y92.009 Unspecified place in unspecified non-institutional (private) residence as the place of occurrence of the external cause; V49.9XXA Car occupant (driver) (passenger) injured in unspecified traffic accident, initial encounter; Y92.410 Unspecified street and highway as the place of occurrence of the external cause; Z87.891 Personal history of nicotine dependence
CPT/HCPCS: 36415; 73700-TC; 80048-TC; 80061-TC; 80202-TC; 83735-TC; 84100-TC; 85025-TC; 85652-TC; 87081-TC; 93971-TC; G0378; J3370; J7030; J7050; J7060

== ENCOUNTER 2018-09-30 14:22 | Emergency (ER) | payer OTHER ==
[~2018-09-30] VITALS: Ht 175.3 cm; Wt 74.8 kg
[~2018-09-30 14:22] MED LIST: ALBU18HF2 IH; BACL10TA PO; ELVI1TAB3 PO; GABA-534 PO
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
--- NOTE | 2018-09-30 15:53 | NUR ---
PATIENT A/OX2-3, MEDICALLY CLEARED FOR BOOKING. PATIENT DISCHARGED TO [employer] CUSTODY, IN NO DISTRESS. VSS.
[2018-09-30 15:56] VITALS: BP 113/70
== END 2018-09-30 15:57 ==
LOC: ER 14:22
DX: S70.02XA Contusion of left hip, initial encounter (principal); Z88.2 Allergy status to sulfonamides; Z88.1 Allergy status to other antibiotic agents; Z60.2 Problems related to living alone; V49.49XA Driver injured in collision with other motor vehicles in traffic accident, initial encounter; Y93.89 Activity, other specified; Y92.413 State road as the place of occurrence of the external cause; Y99.8 Other external cause status
CPT/HCPCS: 72170-TC; 73564-TC; 73590-TC

== ENCOUNTER 2019-02-25 00:08 | Inpatient (IN) | payer OTHER ==
[~2019-02-25] VITALS: Ht 175.3 cm; Wt 68.0 kg
--- NOTE | 2019-02-25 00:44 | NUR ---
PATIENT CAME TO ER WITH C/O LEFT RIB PAIN FROM SLIPPING IN BATH TUB AND ALSO HAS HAD LEFT LEG ABSCESS ON THE CALF AREA. AAOX4. NO SOB. BREATHING EVEN AND UNLABORED. CONNECTED TO MONITOR.
[2019-02-25] MEDS ORDERED: IV NS 0.9% 1,000 ML BAG IV ONE (01:00)
[2019-02-25] MEDS ORDERED: PIPERACILLIN /TAZOBACTAM 3.375 G in IV D5W 50 ML IV ONE (01:00)
--- NOTE | 2019-02-25 01:04 | NUR ---
PT IS GOING TO [facility]-1
--- NOTE | 2019-02-25 01:15 | NUR ---
BLOOD AND CULTURE DRAWN SENT TO LAB
[2019-02-25] MEDS ORDERED: PIPERACILLIN /TAZOBACTAM 3.375 G VIAL IV ONE (01:16)
[2019-02-25 01:18] LABS: BASOPHILS # (AUTO) 0.1 /CMM (0.0-0.2); BASOPHILS % (AUTO) 1.5 % (0.0-2.0); EOSINOPHILS % (AUTO) 2.6 % (0.0-6.0); HEMATOCRIT 39 % (39-51); HEMOGLOBIN 12.7 g/dL (13.5-17.5); LYMPHOCYTES # (AUTO) 1.9 /CMM (0.8-4.8); LYMPHOCYTES % (AUTO) 20.9 % (20.0-44.0); MEAN CORPUSCULAR HGB CONC 32 g/dl (31.0-36.0); MEAN CORPUSCULAR VOLUME 83 fL (80-96); MONOCYTES # (AUTO) 0.6 /CMM (0.1-1.30); MONOCYTES % (AUTO) 6.7 % (2.0-12.0); NEUTROPHILS # (AUTO) 6.2 /CMM (1.8-8.9); NEUTROPHILS % (AUTO) 68.3 % (43.0-81.0); PLATELET COUNT (AUTO) 362 /CMM (150-450); RED BLOOD CELL COUNT(AUTO) 4.69 MIL/uL (4.5-6.0)
[2019-02-25 01:28] LABS: CALCIUM, SERUM 8.9 mg/dL (8.5-10.1); CREATININE 0.8 mg/dL (0.6-1.3); POTASSIUM 3.7 mmol/L (3.5-5.1)
[2019-02-25] MEDS ORDERED: ACETAMINOPHEN 325 MG TABLET PO PRN (01:30)
[2019-02-25] MEDS ORDERED: MORPHINE SULFATE INJ 2 MG/ML DISP.SYRIN IV PRN (01:30)
[2019-02-25] MEDS ORDERED: MAG HYDROX/AL HYDROX/SIMETH 30 ML UDC PO PRN (01:30)
[2019-02-25] MEDS ORDERED: Z GUARD REMEDY 2 OZ OINT TP PRN (01:30)
[2019-02-25] MEDS ORDERED: MAGNESIUM HYDROXIDE 30 ML UDC PO PRN (01:30)
[2019-02-25] MEDS ORDERED: ONDANSETRON HCL/PF 4 MG/2 ML VIAL IVP PRN (01:30)
[2019-02-25] MEDS ORDERED: ZOLPIDEM TARTRATE 5 MG TABLET PO PRN (01:30)
--- NOTE | 2019-02-25 01:33 | NUR ---
REPORT GIVEN TO HORACIO KHALIL. FOR MIKIE. CHANGED ROOM TO [facility]-2
[2019-02-25 02:05] VITALS: BP 119/67
--- NOTE | 2019-02-25 02:05 | NUR ---
MS AGRICULTURAL SYSTEMS SPECIALIST NOTES RECEIVED FROM ER PER BOLIVAR ACCOMPANIED BY NURSE AND TOPPER PRESS OPERATOR AUTOMATIC THIS 49 YO MALE,ALERT,ORIENTED X3,WITH CHIEF COMPLAINTS OF LEFT SIDED RIB PAIN, S/P SLIP AND FALL IN THE BATHROOM,LEFT LEG SWELLING WHICH WAS ON AND OFF X 3YEARS.NOTED EDEMA +4 ON LEFT LOWER LEG,WITH LUMP AND ABRASION,NO DISCHARGES NOTED.WITH SALINE LOCK #20 ON RIGHT HAND,NS INFUSING.WITH SKIN TATTOE NOTED UPPER AND LOWER EXTREMITIES.AMBULATE WITH WALKER.WOUND CONSULT TRIGGERED.CALL LIGHT IN REACH.CLAIMED HE'S HUNGRY,FOOD PROVIDED,ON REGULAR DIET.WILL CONTINUE TO MONITOR STATUS.
[2019-02-25 02:54] VITALS: BP 119/67
[2019-02-25] MEDS: HYDROCODONE/APAP 5/325MG 1 EACH TABLET PO PRN (03:20)
--- NOTE | 2019-02-25 03:20 | NUR ---
MS RN NOTES PAIN MANAGEMENT C/O PAIN 7/10 ON PAIN SCALE VIA LEFT LOWER LEG.MEDICATED WITH NORCO 5/325MG,1 TAB PO ORDERED.
--- NOTE | 2019-02-25 06:49 | NUR ---
MS RN NOTES LAYING COMFORTABLY ON BED,BREATHING REGULAR,NOT IN ANY FORM OF DISTRESS.PAIN MANAGEMENT EFFECTIVE.SKIN ABRASION ON LEFT LOWER LEG,CLEANSE WITH NS AND COVERED WITH MEPILEX.,SALINE LOCK REMAINS PATENT.WILL ENDORSE TO DAY NURSE FOR MIKIE.
--- NOTE | 2019-02-25 07:30 | NUR ---
RN MS NOTES PT IN BED, ASLEEP, EASY TO AROUSE, ALERT AND ORIENTED, NO COMPLAINT OF PAIN AT THIS TIME, RESPIRATIONS NORMAL, IV FLUIDS INFUSING WELL, CALL LIGHT WITHIN REACH, ASSISTED TO BATHROOM VIA WHEELCHAIR, NEEDS ATTENDED.
[2019-02-25 08:00] VITALS: BP 110/71
[2019-02-25] MEDS: PIPERACILLIN /TAZOBACTAM 3.375 G in IV D5W 100 ML IV SCH ×2 (09:19→16:53)
--- NOTE | 2019-02-25 10:32 | NUR ---
WOUND CARE CONSULT: PT FOLLOWED BY ORTHO FOR LEFT LOWER LEG ABSCESS. RECOMMENDATIONS MADE FOR WOUND CARE AND SKIN PROTECTION TIL SURGERY. DISCUSSED WITH NURSING STAFF. LEG ELEVATED ON PILLOWS. WILL SEE PRN. PT IS CONTINENT AND INDEPENDENT WITH BED MOBILITY. Addendum: 02/25/19 at 1034 by YARIEL FAN WNDNU Amended: Links added.
[2019-02-25] MEDS ORDERED: FEE PK DOSING 1 MIN EA MC ONE (11:17)
[2019-02-25] MEDS: VANCOMYCIN 1 GM in IV D5W 250 ML IV SCH ×2 (12:45→20:27)
[2019-02-25 16:00] VITALS: BP 122/75
--- NOTE | 2019-02-25 18:06 | NUR ---
RN MS NOTES PT IN BED, AWAKE, ALERT AND ORIENTED, EATING DINNER, NO COMPLAINT OF PAIN AT THIS TIME, RESPIRATIONS NORMAL AND NOT LABORED, IV ATB INFUSING, ASSISTED TO BATHROOM NEEDED VIA WHEELCHAIR, PM MEDS GIVEN ORDERED, ALL NEEDS ATTENDED.
[2019-02-25] MEDS: GENVOYA PO SCH (18:13)
--- NOTE | 2019-02-25 19:10 | NUR ---
CHANGED OF SHIFT REPORT Patient in bed, sleeping arouses easily. Left leg with dressing intact, with swelling LLE, denies pain. Instructed to use call light for assistance, verbalized understanding. Fall precaution maintained.
[2019-02-25 20:00] VITALS: BP 116/69
[2019-02-26] MEDS: PIPERACILLIN /TAZOBACTAM 3.375 G in IV D5W 100 ML IV SCH ×3 (00:39→16:00)
[2019-02-26 04:06] VITALS: BP 116/69
[2019-02-26] MEDS: VANCOMYCIN 1 GM in IV D5W 250 ML IV SCH ×3 (04:20→20:15)
--- NOTE | 2019-02-26 06:14 | NUR ---
END OF SHIFT REPORT Patient in bed, stable oxygen saturation on RA. Left lower leg warmth, swollen. Remains on IV antibiotic, Afebrile overnight. NWB LLE, denies pain. Plan possible surgery, ortho following. Fall precaution maintained.
[2019-02-26 06:33] LABS: BASOPHILS % (AUTO) 0.7 % (0.0-2.0); EOSINOPHILS % (AUTO) 3.2 % (0.0-6.0); HEMATOCRIT 39 % (39-51); HEMOGLOBIN 12.8 g/dL (13.5-17.5); LYMPHOCYTES # (AUTO) 1.7 /CMM (0.8-4.8); LYMPHOCYTES % (AUTO) 23.6 % (20.0-44.0); MEAN CORPUSCULAR HGB CONC 33 g/dl (31.0-36.0); MEAN CORPUSCULAR VOLUME 81 fL (80-96); MONOCYTES # (AUTO) 0.5 /CMM (0.1-1.30); MONOCYTES % (AUTO) 7.2 % (2.0-12.0); NEUTROPHILS # (AUTO) 4.6 /CMM (1.8-8.9); NEUTROPHILS % (AUTO) 65.3 % (43.0-81.0); PLATELET COUNT (AUTO) 347 /CMM (150-450); RED BLOOD CELL COUNT(AUTO) 4.78 MIL/uL (4.5-6.0); WHITE BLOOD COUNT (AUTO) 7.1 K/uL (4.3-11.0)
[2019-02-26 06:59] LABS: CALCIUM, SERUM 9.1 mg/dL (8.5-10.1); CREATININE 0.8 mg/dL (0.6-1.3); PHOSPHORUS 3.8 mg/dL (2.5-4.9); POTASSIUM 4.7 mmol/L (3.5-5.1)
[2019-02-26 07:00] LABS: THYROID STIMULATING HORMONE 1.575 uIU/mL (0.358-3.74)
--- NOTE | 2019-02-26 07:35 | NUR ---
RN MS OPENING NOTES Patient received on room air, no sob noted, a/o x3 and patient denies pain at this time. R hand #20 remains patent at this time. Bed at the lowest setting, call light within reach, side rails up x2.
[2019-02-26 08:00] VITALS: BP 127/74
[2019-02-26] MEDS: GENVOYA PO SCH (08:20)
[2019-02-26 15:55] VITALS: BP 136/80
--- NOTE | 2019-02-26 16:55 | NUR ---
RN NOTES Pharmacy notified of Zosyn not available at this time. Awaiting for Zosyn to be delivered.
--- NOTE | 2019-02-26 17:53 | NUR ---
RN NOTES Lawandasyn remains not available. Non admin. Called pharmacy and they stated that they were going to deliver medication.
--- NOTE | 2019-02-26 17:55 | NUR ---
RN MS CLOSING NOTES Patient remains on room air, no sob noted, patient denies pain at this time. Patient comfortable in bed and has no further concerns. Remains with R hand 20 gauge that is patent. Zosyn that was due 1600 not given due to not being available. Called pharmacy 3x for medication. Bed at the lowest setting, call light within reach, side rails up x2.
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
--- NOTE | 2019-02-26 19:30 | NUR ---
MS/RN NOTES RECEIVED PT. LYING IN BED. PT. IS AWAKE, ALERT AND ORIENTED X3. BREATHING EVEN AND UNLABORED ON ROOM AIR. NO SOB, RESPIRATORY DISTRESS OR COMPLAINTS OF PAIN NOTED AT THIS TIME. PT. WITH RIGHT HAND 20 GAUGE IV SALINE LOCK PRESENT, PATENT AND INTACT. BED LOCKED AND IN LOWEST POSITION, SIDE RAILS UP X2, CALL LIGHT WITHIN REACH, WILL CONTINUE TO MONITOR.
[2019-02-26 20:00] VITALS: BP 126/79
[2019-02-27] MEDS: PIPERACILLIN /TAZOBACTAM 3.375 G in IV D5W 100 ML IV SCH ×2 (00:04→08:45)
[2019-02-27 03:06] LABS: *BASOS 0 % (Not Estab.); *EOS 2 % (Not Estab.); *EOS, ABSOLUTE 0.2 x10E3/uL (0.0-0.4); *HCT 38.3 % (37.5-51.0); *HGB 12.9 g/dL (13.0-17.7); *IMMATURE GRANULOCYTES 0 % (Not Estab.); *LYMPHOCYTES 24 % (Not Estab.); *LYMPHS, ABSOLUTE 1.7 x10E3/uL (0.7-3.1); *MCH 27.4 pg (26.6-33.0); *MCHC 33.7 g/dL (31.5-35.7); *MCV 81 fL (79-97); *MONOCYTES 8 % (Not Estab.); *MONOS, ABSOLUTE 0.5 x10E3/uL (0.1-0.9); *NEUTROPHILS 66 % (Not Estab.); *NEUTROPHILS, ABSOLUTE 4.6 x10E3/uL (1.4-7.0); *PLT 362 x10E3/uL (150-450); *RBC 4.71 x10E6/uL (4.14-5.80); *RDW 16.9 % (12.3-15.4)
[2019-02-27] MEDS: VANCOMYCIN 1 GM in IV D5W 250 ML IV SCH (04:26)
[2019-02-27] MEDS: HYDROCODONE/APAP 5/325MG 1 EACH TABLET PO PRN (05:56)
[2019-02-27 07:08] LABS: CREATININE 0.8 mg/dL (0.6-1.3); POTASSIUM 4.2 mmol/L (3.5-5.1)
--- NOTE | 2019-02-27 07:10 | NUR ---
MS/RN NOTES PT. IS LYING IN BED RESTING. BREATHING EVEN AND UNLABORED ON ROOM AIR. NO SOB, RESPIRATORY DISTRESS OR COMPLAINTS OF PAIN NOTED AT THIS TIME. PT. WITH RIGHT HAND 20 GAUGE IV SALINE LOCK PRESENT, PATENT AND INTACT. ALL PT. NEEDS MET. BED LOCKED AND IN LOWEST POSITION, SIDE RAILS UP X2, CALL LIGHT WITHIN REACH, WILL ENDORSE TO DAYSHIFT NURSE FOR CONTINUITY OF CARE.
--- NOTE | 2019-02-27 07:34 | NUR ---
RN MS OPENING NOTES Received patient on room air, no sob noted, patient denies pain at this time and is comfortably in his bed. R hand 20 SL. Left leg has dry wound dressing, swelling noted but patient denies discomfort. Bed at the lowest setting, call light within reach, side rails up x2.
[2019-02-27 08:00] VITALS: BP 112/78
[2019-02-27] MEDS: GENVOYA PO SCH (08:06)
[2019-02-27] MEDS ORDERED: CLIN300C11 PO (10:55)
[2019-02-27 11:07] LABS: *% CD 4 POS. LYMPH 28.4 % (30.8-58.5); *% CD 8 POS. LYMPH 42.1 % (12.0-35.5); *ABSOLUTE CD 4 HELPER 483 /uL (359-1519); *ABSOLUTE CD 8 SUPPRESSOR 716 /uL (109-897); *CD4/CD8 RATIO 0.67 (0.92-3.72)
--- NOTE | 2019-02-27 12:20 | NUR ---
TILE MECHANIC HELPER NOTES Patient discharged at this time. No sob noted, vital signs stable. patient has all the paperwork for discharge and stated that nothing is missing. Patient's IV line removed with no bleeding noted. Patient has all belongings with him and went out the hospital on his wheelchair.
== END 2019-02-27 12:15 | disposition home or self-care (01) | DRG 721 ==
LOC: ER 00:17 → MED 01:06
PROVIDERS: ADMIT Internal Medicine; ATTEND Internal Medicine
DX: T81.40XA Infection following a procedure, unspecified, initial encounter (principal); M00.9 Pyogenic arthritis, unspecified; L02.416 Cutaneous abscess of left lower limb; L03.116 Cellulitis of left lower limb; S82.102K Unspecified fracture of upper end of left tibia, subsequent encounter for closed fracture with nonunion; V89.2XXS Person injured in unspecified motor-vehicle accident, traffic, sequela; Z87.891 Personal history of nicotine dependence; Z88.2 Allergy status to sulfonamides; Y83.9 Surgical procedure, unspecified as the cause of abnormal reaction of the patient, or of later complication, without mention of misadventure at the time of the procedure; Y92.89 Other specified places as the place of occurrence of the external cause
CPT/HCPCS: 36415; 71100-TC; 73590-TC; 80048-TC; 80061-TC; 80202-TC; 83735-TC; 84100-TC; 84443-TC; 85025-TC; 86360; 87040-TC; 87081-TC; 93307-TC; A6253; G0378; J2270; J2543; J3370; J7050; J7060